=== PATIENT | female | born 1980 | race Caucasian/White ===

== ENCOUNTER 2020-01-11 15:36 | Outpatient (CLI) | payer BC, SELFPAY | END 2020-01-11 15:37 | disposition home or self-care (01) | PROVIDERS: PCP Emergency Medicine; Visit Provider Obstetrics & Gynecology | DX: R10.2 Pelvic and perineal pain (principal); Z01.812 Encounter for preprocedural laboratory examination | CPT/HCPCS: 36415; 86850; 86900; 86901 ==

== ENCOUNTER 2020-01-18 00:46 | Outpatient (CLI) | payer BC, SELFPAY ==
[2020-01-18 18:19] LABS: SARS-CoV-2 RNA PCR Negative
== END 2020-01-18 00:47 | disposition home or self-care (01) ==
LOC: ANHCOVIDDT 00:47
PROVIDERS: PCP Emergency Medicine; Visit Provider Obstetrics & Gynecology
DX: Z01.812 Encounter for preprocedural laboratory examination (principal); Z20.828 Contact with and (suspected) exposure to other viral communicable diseases
CPT/HCPCS: 87635; C9803; U0003

== ENCOUNTER 2020-01-20 01:13 | Day surgery (SDC) | payer BC, SELFPAY ==
[2020-01-09 11:46] VITALS: BMI 27.9
--- NOTE | 2020-01-18 11:11 | P.HP_ITS ---
H&P: HPI History of Present Illness Date/Time: 01/18/20 11:11 Chief complaint: Pelvic Pain/ Postcoital Bleeding Narrative: Delia Cole is a 39 year old female who is admitted for diagnostic laparoscopy. She has had pelvic pain and postcoital bleeding. Ultrasound showed marked amount of free fluid in the cul-de-sac but otherwise relatively unremarkable findings. The IUD was seen in the uterus. Risks and benefits reviewed Review of Systems Review of Systems: All systems reviewed & are unremarkable except as noted in HPI and below PMFSH Past Medical History Medical History (Updated 04/12/19 @ 07:18 by Connor Mathis MD) Chronic insomnia Family History Family History (Updated 03/05/17 @ 16:22 by DOCTOR UNKNOWN) Father Family history of gout Hypertension Asthma Mother Asthma Hypertension Social History Social History (Updated 04/11/19 @ 15:27 by Neelam Urbano) Years smoked: 20 Smoking status: Current every day smoker Tobacco type: cigarettes Second hand tobacco smoke exposure: No Smoking end date: 05/25/17 Alcohol intake: current Drinks per week: 4 Substance use: current Substance use type: marijuana Last use: 12/28/19 Gender identity (if verbalized by the patient): Female Spiritual care concerns: No Meds Home Medications and Allergies Home Medications Medication Instructions Recorded Confirmed Type dextroamphetamine-amphetamine 20 mg PO DAILY 01/09/20 01/09/20 History Allergies Allergy/AdvReac Type Severity Reaction Status Date / Time No Known Allergies Allergy Unverified 01/09/20 11:46 Exam Const: General: no acute distress Eyes: General: appearance normal, both eyes and all related structures Neck: Neck: supple and no JVD Thyroid: thyroid normal Resp: Effort & Inspection: normal respiratory effort Auscultation: clear to auscultation bilaterally Cardio: Rate: regular rate Rhythm: regular rhythm GI: Inspection: non-distended GI Palp: Yes Soft to palpation, No Tenderness to palpation present (GI) and No Guarding due to palpation present (GI) Aus cultation: normal bowel sounds : General: Yes bladder normal to inspection External Female Exam: normal external appearance Speculum Exam - Vagina: normal appearance of the vagina Speculum Exam - Cervix: normal appearance of the cervix Bimanual exam- vagina & uterus: uterine size normal and Cervical tenderness present Bimanual Exam- Adnexa, other: tender Skin: General skin exam: no rashes or lesions noted Extrem: General: normal to inspection and no edema Psych: Mental Status: mental status grossly normal Affect: normal affect Assessment and Plan Additional Plan impression: Pelvic pain plan Diagnostic laparoscopy
--- NOTE | 2020-01-19 12:04 | P.PNAN_ITS ---
Anes - Initial Pre Proc Eval Procedure: Operation Date: 01/20/20 09:30 Proposed Procedures p Diagnostic Laparoscopy - Ender Andrew MD Date/Time: 01/19/20 12:04 Surgeon: Ender Andrew MD Pre Op Diagnosis: Pelvic Pain/ Postcoital Bleeding Patient Data Age: 39 Gender: F Height: 1.78 m Weight: 88.45 kg Allergies Allergy/AdvReac Type Severity Reaction Status Date / Time No Known Allergies Allergy Verified 01/20/20 08:00 Home Medications Medication Instructions Recorded Confirmed Type dextroamphetamine-amphetamine 20 mg PO DAILY 01/09/20 01/20/20 History hydrocodone-acetaminophen [[place]] 1 tablet PO Q4H PRN #30 tablet 01/20/20 Rx Patient hx anesthesia problems: none Family hx anesthesia problems: none PMFSH Past Medical History Medical History (Updated 01/19/20 @ 12:04 by Malcolm Ware DO) ADD (attention deficit disorder) Chronic insomnia Surgical History Surgical History (Updated 01/19/20 @ 12:04 by Malcolm Ware DO) History of History of cholecystectomy Family History Family History (Updated 03/05/17 @ 16:22 by DOCTOR UNKNOWN) Father Family history of gout Hypertension Asthma Mother Asthma Hypertension Social History Social History (Updated 04/11/19 @ 15:27 by Neelam Urbano) Years smoked: 20 Smoking status: Current every day smoker Tobacco type: cigarettes Second hand tobacco smoke exposure: No Smoking end date: 05/25/17 Alcohol intake: current Drinks per week: 4 Substance use: current Substance use type: marijuana Last use: 12/28/19 Gender identity (if verbalized by the patient): Female Spiritual care concerns: No Anes - Eval Final PreProcedure Day of Procedure 01/19/20 12:04 Patient weight: overweight Heart: regular rate and rhythm Lungs: clear to auscultation and normal air movement Airway: Mallampati scale class II Neurological: alert and oriented Last oral intake: >/= 8 hours ASA classification: II Emergent: no Anesthetic plan: proceed Anesthesia type and monitoring: general ETT and standard monitoring Informed Consent: The patient's anesthetic plan and its attendant risks and benefits were discussed with the patient/family/POA. Questions were solicited and answers provided to the satisfaction of the patient/family/POA.
[2020-01-20] VITALS (7 sets, daily range): BP systolic 117–146; BP diastolic 75–95; PULSE 51–82; RESP 12–18; TEMP 36.1–36.6; O2SAT 98–100
--- NOTE | 2020-01-20 06:19 | WPDHPUPDATE1 ---
History and Physical Update Update Date/Time: 01/20/20 06:19 History and Physical has been reviewed, including an updated exam of the patient. There are NO changes in the patient's condition. Risks, benefits, and alternatives have been discussed and questions answered. Patient agrees to proceed with procedure.
[2020-01-20] MEDS: ACETAMINOPHEN 500 MG TABLET 1000 MG PO (08:22)
[2020-01-20] MEDS: LACTATED RINGERS 1,000 ML 30 ML IV CONT ×2 (08:22→09:47)
[2020-01-20] MEDS: KETOROLAC 15 MG/ML VIAL (*BKC) IV PUSH (08:23)
--- NOTE | 2020-01-20 09:41 | PM.PROC ---
Procedure Note - Detailed Date of procedure: 01/20/20 Pre-op diagnosis: Pelvic Pain/ Postcoital Bleeding Surgeon: Ender Andrew MD Postop diagnosis: Pelvic pain/ endometriosis Procedure: Laparoscopy and destruction of endometriosis Anesthesia: General endotracheal EBL: 5Cc Findings: [id number] of serosanguineous fluid small areas of endometriosis. Normal-appearing ovaries and tubes normal appearing appendix Complications: None Description of procedure: The patient was prepped draped in the normal sterile fashion placed in the dorsal lithotomy position. Under excellent general trach anesthesia weighted speculum was placed in posterior fornix of vagina. Anterior lip of the cervix was grasped with a single-tooth tenaculum. The Christopher's cannula was inserted to the cervix and attached to the single-tooth to be used later for uterine manipulation. The bladder was drained of clear urine [id number]. The remainder the instruments removed from the vagina. Gloves were changed. A supraumbilical incision was made and the Veress needle passed in the abdomen. The abdomen was filled with CO2 gas to 15mm Hg. The 5mm trocar was advanced in the abdomen under direct visualization assuring no injury. The patient placed in Trendelenburg and a suprapubic incision made. The 5mm trocar advanced under direct visualization assuring no injury. The above findings were seen 75cc serosanguineous fluid was removed was sent for culture and sensitivity. The areas of endometriosis on the l the right ovary. The areas of endometriosis were point cauterized at 35 w per 2nd. No other abnormalities were seen. The lower site removed. The upper site removed after gas removed from the abdomen. The incisions closed with 4 Monocryl and glue. The patient was awakened. All sponge, needle, instrument counts were correct. There were no immediate complications
== END 2020-01-20 11:22 | disposition home or self-care (01) ==
PROVIDERS: PCP Emergency Medicine; Visit Provider Obstetrics & Gynecology
PROC: (CPT 49320; principal; 2020-01-20 09:30)
DX: N80.1 Endometriosis of ovary (principal); Z97.5 Presence of (intrauterine) contraceptive device; F98.8 Other specified behavioral and emotional disorders with onset usually occurring in childhood and adolescence; E66.3 Overweight; Z68.27 Body mass index [BMI] 27.0-27.9, adult; F17.210 Nicotine dependence, cigarettes, uncomplicated; F12.90 Cannabis use, unspecified, uncomplicated
CPT/HCPCS: 58662; 87070; 87075; 87205; A9270; J0330; J1100; J1885; J2250; J2405; J2704; J3010; J7120

== ENCOUNTER → 2020-01-26 07:49 | Outpatient (CLI) | payer BC, SELFPAY ==
--- NOTE | ~2020-01-26 | US_ITS ---
EXAMINATION: US abdomen complete DATE: 01/26/2020 08:17 INDICATION: Liver disease, prior cholecystectomy TECHNIQUE: Multiple grayscale and Doppler ultrasound images of the abdomen were obtained. COMPARISON: 05/07/2015 FINDINGS: The head and and body of the pancreas are normal. The pancreatic tail is obscured by bowel gas. The liver is normal with normal echogenicity and echotexture. No surface nodularity. Normal hepa topetal flow in the main portal vein. The gallbladder is surgically absent. The normal common bile du ct measures 4 mm. The visualized portions of the aorta and inferior vena cava are normal. The right kidney measures 10.9 x 4.8 x 5.0 cm. The left kidney measures 10.5 x 5.1 x 6.1 cm. The kidn eys demonstrate normal parenchymal echogenicity. There is no hydronephrosis. The spleen is normal in appearance and measures 13.5 cm. IMPRESSION: 1. Unremarkable postcholecystectomy ultrasound. Reviewed, dictated and finalized at location A.
== END ==
PROVIDERS: PCP Emergency Medicine; Visit Provider Emergency Medicine
DX: K76.9 Liver disease, unspecified (principal); Z90.49 Acquired absence of other specified parts of digestive tract
CPT/HCPCS: 76700